=== PATIENT | male | born 1960 ===

== ENCOUNTER 2016-07-28 08:14 | Emergency (ER) | payer OTHER ==
[2016-07-28 08:37] VITALS: RESP 18; TEMP 97.8
[2016-07-28] MEDS ORDERED: ONDANSETRON HCL 4 MG/2 ML SOL IM ONE (09:10)
[2016-07-28] MEDS ORDERED: SODIUM CHLORIDE 0.9% 1000 ML SOL IV SCH (09:15)
[2016-07-28] MEDS ORDERED: ONDANSETRON HCL 4 MG/2 ML SOL ONE (09:19)
[2016-07-28] MEDS ORDERED: ONDANSETRON HCL 4 MG/2 ML SOL IV ONE (09:21)
[2016-07-28 09:23] LABS: ALBUMIN 3.9 gm/dl (3.4-5.0); CALCIUM 8.1 mg/dl (8.5-10.1); POTASSIUM 3.7 mMol/L (3.5-5.1)
[2016-07-28 09:26] LABS: BASOPHILS % (AUTO) 1 % (0-3); EOSINOPHILS % (AUTO) 1 % (0-9); HEMATOCRIT 32 % (39-53); MEAN CORPUSCULAR VOLUME 87 fL (80-100); MONOCYTES % (AUTO) 4.6 % (0-12); NEUTROPHILS % (AUTO) 88.6 % (37-80)
[2016-07-28 09:28] VITALS: BP 99/58; PULSE 68; O2SAT 94
== END 2016-07-28 11:30 | disposition home or self-care (01) ==
LOC: ED 08:14
DX: K52.9 Noninfective gastroenteritis and colitis, unspecified (principal); E86.0 Dehydration
CPT/HCPCS: 99283 ×4; 85025; 96365; 96374; J2405; 80053

== ENCOUNTER 2016-09-21 08:53 | Day surgery (SDC) | payer OTHER ==
[~2016-09-21 08:53] MED LIST: LIDOCAINE HCL 1% MPF SOL ONE; PROPOFOL 500 MG/50 ML EMU IV ONE
[2016-09-21 11:01] VITALS: BP 127/81; PULSE 63; RESP 18; TEMP 97.4; O2SAT 99
== END 2016-09-21 11:34 | disposition home or self-care (01) ==
LOC: SURG 08:53
PROVIDERS: ATTEND Surgery
DX: Z12.11 Encounter for screening for malignant neoplasm of colon (principal); Z98.0 Intestinal bypass and anastomosis status; K62.5 Hemorrhage of anus and rectum
CPT/HCPCS: J2001; J2704

== ENCOUNTER 2017-01-28 16:08 | Inpatient (IN) | payer OTHER ==
[2017-01-28] MEDS ORDERED: MORPHINE SULFATE 10 MG/ML SOL IV ONE ×2 (16:27→18:34)
[2017-01-28 16:31] LABS: HEMATOCRIT 34 % (39-53); MEAN CORPUSCULAR HGB CONC 31.4 gm/dl (32.0-36.0)
[2017-01-28] MEDS: SODIUM CHLORIDE 0.9% FLUSH 10 ML SOL IV PRN ×2 (16:31→16:35)
[2017-01-28] MEDS ORDERED: MORPHINE SULFATE 10 MG/ML SOL ONE ×2 (16:32→18:53)
[2017-01-28] MEDS ORDERED: SODIUM CHLORIDE 0.9% 1000ML 1,000 ML IV SCH (16:45)
[2017-01-28 16:46] LABS: ALBUMIN 3.7 gm/dl (3.4-5.0); CALCIUM 8.8 mg/dl (8.5-10.1); POTASSIUM 4.2 mMol/L (3.5-5.1)
[2017-01-28 16:48] LABS: MEAN CORPUSCULAR VOLUME 81 fL (80-100)
[2017-01-28 17:05] LABS: ANISOCYTOSIS SLIGHT AMT; BASOPHILS % (MANUAL) 0 % (0-3); EOSINOPHILS % (MANUAL) 4 % (0-9); LYMPHOCYTES % (MANUAL) 24 % (10-50)
[2017-01-28 18:00] LABS: APPEARANCE,URINE Clear; BILIRUBIN,URINE 1+ (NEGATIVE); COLOR,URINE Dark yellow; GLUCOSE, URINE (UA) NEGATIVE (NEGATIVE); KETONES,URINE TRACE (NEGATIVE); LEUKOCYTE ESTERASE ,URINE NEGATIVE (NEGATIVE); NITRATE,URINE NEGATIVE (NEGATIVE); OCCULT BLOOD,URINE NEGATIVE (NEG-TRACE); PH,URINE 5.5; UROBILINOGEN,URINE 0.2 (0.2-1.0 EU)
[2017-01-28 18:17] LABS: ICTOTEST,URINE NEGATIVE (NEGATIVE); RBC,URINE NEG (0-3AV/HPF); WBC,URINE NEG (0-5AV/HPF)
[2017-01-28] MEDS ORDERED: ONDANSETRON HCL 4 MG/2 ML SOL IV PRN (19:52)
[2017-01-28] MEDS ORDERED: PIPERACILLIN/TAZOBACT 3.375 GM PDS IV ONE (19:56)
[2017-01-28] MEDS ORDERED: SODIUM CHLORIDE 0.9% 100 ML 100 ML IV ONE (19:56)
[2017-01-28] MEDS ORDERED: SODIUM CHLORIDE 0.9% 100 ML SOL IV ONE (20:00)
[2017-01-28] MEDS: PIPERACILLIN/TAZOBACT 3.375 GM 3 GM in SODIUM CHLORIDE 0.9% 100 ML 100 ML IV SCH (20:15)
[2017-01-28] MEDS: METRONIDAZOLE 500 MG (PREMIX) 500 MG/100 ML SOL IV SCH (20:51)
[2017-01-28] MEDS ORDERED: POLYETHYLENE GLYCOL 17 GM/1 TBS PDS PO SCH (21:00)
[2017-01-28] MEDS: SODIUM CHLORIDE 0.9% 1000ML 1,000 ML IV SCH (21:34)
[2017-01-28] MEDS: MORPHINE SULFATE 10 MG/ML SOL IV PRN ×2 (21:41→23:58)
[2017-01-29] MEDS ORDERED: SODIUM CHLORIDE 0.9% 100 ML 100 ML IV ONE ×2 (01:50→08:00)
[2017-01-29] MEDS ORDERED: PIPERACILLIN/TAZOBACT 3.375 GM PDS IV ONE ×2 (01:50→08:00)
[2017-01-29] MEDS: PIPERACILLIN/TAZOBACT 3.375 GM 3 GM in SODIUM CHLORIDE 0.9% 100 ML 100 ML IV SCH ×2 (02:00→08:15)
[2017-01-29] MEDS: METRONIDAZOLE 500 MG (PREMIX) 500 MG/100 ML SOL IV SCH ×2 (02:31→09:01)
[2017-01-29] MEDS: MORPHINE SULFATE 10 MG/ML SOL IV PRN ×6 (03:31→22:12)
[2017-01-29] MEDS: SODIUM CHLORIDE 0.9% 1000ML 1,000 ML IV SCH (05:50)
[2017-01-29] MEDS ORDERED: POLYETHYLENE GLYCOL 17 GM/1 TBS PDS PO SCH (09:00)
[2017-01-29] MEDS ORDERED: ENOXAPARIN 40 MG SOL SC SCH ×2 (09:00→20:00)
[2017-01-29] MEDS ORDERED: BISACODYL 10 MG SUP PR ONE (09:00)
[2017-01-29] MEDS ORDERED: KETOROLAC TROMETHAMINE 30 MG/ML SOL IV ONE (09:05)
[2017-01-29 11:13] LABS: BASOPHILS % (AUTO) 1 % (0-3); EOSINOPHILS % (AUTO) 7 % (0-9); HEMATOCRIT 33 % (39-53); MEAN CORPUSCULAR HGB CONC 31.7 gm/dl (32.0-36.0); MONOCYTES % (AUTO) 6.8 % (0-12); NEUTROPHILS % (AUTO) 70.1 % (37-80)
[2017-01-29 11:16] LABS: CALCIUM 8.3 mg/dl (8.5-10.1); POTASSIUM 4.6 mMol/L (3.5-5.1)
[2017-01-29 11:23] LABS: ANISOCYTOSIS MOD AMT; HYPOCHROMASIA PRESENT; MEAN CORPUSCULAR VOLUME 81 fL (80-100)
[2017-01-29 11:24] LABS: OVALOCYTES PRESENT; TEAR DROP CELLS PRESENT
[2017-01-29] MEDS: FLEET ENEMA PR PRN ×2 (11:25→12:00)
[2017-01-29] MEDS: SODIUM CHLORIDE 0.9% FLUSH 10 ML SOL IV PRN ×3 (14:01→20:13)
[2017-01-29 16:59] VITALS: O2SAT 90
[2017-01-29] MEDS: SODIUM CHLORIDE 0.9% FLUSH 10 ML SOL IV SCH (18:06)
[2017-01-29] MEDS: SENNOSIDES A AND B 8.6 MG TAB PO SCH (20:13)
[2017-01-30] MEDS: MORPHINE SULFATE 10 MG/ML SOL IV PRN (02:05)
[2017-01-30] MEDS: SODIUM CHLORIDE 0.9% FLUSH 10 ML SOL IV SCH ×2 (02:06→09:57)
[2017-01-30] MEDS ORDERED: NAPROXEN 500 MG TAB PO PRN (08:09)
[2017-01-30] MEDS ORDERED: ACETAMINOPHEN 325 MG PO SCH (08:15)
[2017-01-30] MEDS: SENNOSIDES A AND B 8.6 MG TAB PO SCH (09:57)
[2017-01-30] MEDS ORDERED: NAPROXEN 500 MG TAB ONE (11:05)
[2017-01-30 11:14] VITALS: BP 130/82; PULSE 85; RESP 14; TEMP 97.5
[2017-01-30] MEDS ORDERED: ACETAMINOPHEN 500 MG 500 MG TAB ONE (11:44)
[2017-01-30] MEDS ORDERED: ACETAMINOPHEN 500 MG 500 MG TAB PO SCH (11:45)
== END 2017-01-30 14:05 | disposition home or self-care (01) | DRG 251 ==
LOC: ED 16:08 → UNDOADMIN 19:41 → ACUTE CARE 19:41
PROVIDERS: ADMIT Family Medicine; ATTEND Family Medicine
DX: R10.84 Generalized abdominal pain (principal); K59.00 Constipation, unspecified; M05.79 Rheumatoid arthritis with rheumatoid factor of multiple sites without organ or systems involvement; Z98.890 Other specified postprocedural states
CPT/HCPCS: 36415; 74177; 80048; 80053; 81001; 82150; 85007; 85025; 85027; 99070; 99285; J1650; J1885; J2270; J2405; J2543; Q9967